=== PATIENT | female | born 2000 | race Caucasian/White ===

== ENCOUNTER 2022-01-03 04:02 | Emergency (ER) | payer MEDICARE ==
[~2022-01-03] VITALS: Ht 157.5 cm; Wt 59.0 kg
[2022-01-03 04:06] VITALS: BP 127/84
[2022-01-03] MEDS ORDERED: ACETAMINOPHEN 325MG TABLET PO ONE (05:15)
== END 2022-01-03 05:20 | disposition left against medical advice (07) ==
LOC: ER 04:02
DX: M25.531 Pain in right wrist (principal); W01.0XXA Fall on same level from slipping, tripping and stumbling without subsequent striking against object, initial encounter; Y93.89 Activity, other specified; Y92.9 Unspecified place or not applicable
CPT/HCPCS: 81025; 99282

== ENCOUNTER 2023-10-31 17:08 | Emergency (ER) | payer SELFPAY ==
[~2023-10-31] VITALS: Ht 162.6 cm; Wt 65.0 kg
[2023-10-31 17:17] VITALS: BP 129/78; RESP 20; TEMP 97.9; O2SAT 97
[2023-10-31 17:20] VITALS: PULSE 91
== END 2023-10-31 22:46 | disposition left against medical advice (07) ==
LOC: ER 17:08
DX: M79.89 Other specified soft tissue disorders (principal); Z53.21 Procedure and treatment not carried out due to patient leaving prior to being seen by health care provider